=== PATIENT | male | born 1990 | race Caucasian/White ===

== ENCOUNTER 2019-05-22 11:01 | Emergency (ER) | payer MEDICAID, OTHER ==
[~2019-05-22] VITALS: Ht 185.4 cm; Wt 114.0 kg
[2019-05-22] MEDS ORDERED: KETOROLAC 30MG/ML VIAL IM ONE (13:45)
[2019-05-22 16:37] VITALS: BP 150/85
== END 2019-05-22 16:38 | disposition home or self-care (01) ==
LOC: ER 12:20
DX: S49.82XA Other specified injuries of left shoulder and upper arm, initial encounter (principal); W18.39XA Other fall on same level, initial encounter; Y93.66 Activity, soccer; Y92.89 Other specified places as the place of occurrence of the external cause; Y99.8 Other external cause status
CPT/HCPCS: 73000; 73030; 96372; 99283; J1885; A4565

== ENCOUNTER 2019-05-25 09:35 | Emergency (ER) | payer MEDICAID ==
[~2019-05-25] VITALS: Ht 172.7 cm; Wt 80.0 kg
[2019-05-25 11:04] VITALS: BP 132/70
== END 2019-05-25 11:10 | disposition home or self-care (01) ==
LOC: ER 09:35
DX: S43.402A Unspecified sprain of left shoulder joint, initial encounter (principal); X50.9XXA Other and unspecified overexertion or strenuous movements or postures, initial encounter; Y93.89 Activity, other specified; Y92.89 Other specified places as the place of occurrence of the external cause
CPT/HCPCS: 99281

== ENCOUNTER 2019-06-01 08:34 | Emergency (ER) | payer MEDICAID ==
[~2019-06-01] VITALS: Ht 185.4 cm; Wt 116.0 kg
[2019-06-01 08:53] VITALS: BP 148/85
== END 2019-06-01 12:16 | disposition home or self-care (01) ==
LOC: ER 08:34
DX: M25.512 Pain in left shoulder (principal); Z87.828 Personal history of other (healed) physical injury and trauma
CPT/HCPCS: 99281